=== PATIENT | male | born 1995 | race Caucasian/White ===

== ENCOUNTER 2022-08-02 14:52 | Inpatient (IN) | payer OTHER ==
[~2022-08-02] VITALS: Ht 162.6 cm; Wt 69.4 kg
[2022-08-02 16:17] LABS: BASOPHILS % (AUTO) 0.3 % (0.0-2.0); EOSINOPHILS % (AUTO) 2.1 % (1.0-6.0); HEMATOCRIT 46.6 % (41-53); HEMOGLOBIN 15.8 g/dL (13.5-17.5); LYMPHOCYTES # (AUTO) 0.8 K/uL (1.0-4.8); LYMPHOCYTES % (AUTO) 10.1 % (22.0-44.0); MEAN CORPUSCULAR VOLUME 85 fL (80-100); MONOCYTES # (AUTO) 0.5 K/uL (0.1-1.0); MONOCYTES % (AUTO) 7.1 % (2.0-9.0); NEUTROPHILS # (AUTO) 6.2 K/uL (1.8-7.7); NEUTROPHILS % (AUTO) 80.4 % (40.0-70.0); PLATELET COUNT (AUTO) 245 K/uL (150-450); RED BLOOD CELL COUNT(AUTO) 5.47 MIL/uL (4.50-5.90)
[2022-08-02 16:21] LABS: ANION GAP 6 mmol/L (8-16); CALCIUM, TOTAL 9.9 mg/dL (8.8-10.5); CARBON DIOXIDE 31 mmol/L (22-29); CHLORIDE 100 mmol/L (98-107); CREATININE 1.34 mg/dL (0.60-1.30); GLOMERULAR FILTR. RATE CALC > 60 mL/min (>60); GLUCOSE,RANDOM 90 mg/dL (70-110); POTASSIUM 4.5 mmol/L (3.5-5.1); SODIUM SERUM 137 mmol/L (136-145); UREA NITROGEN, BLOOD 18 mg/dL (7-18)
[2022-08-02 16:27] LABS: ALANINE AMINOTRANSFERASE 44 U/L (12-78); ALBUMIN 4.8 g/dL (3.4-5.0); ALKALINE PHOSPHATASE 64 U/L (46-116); ASPARTATE AMINOTRANSFERASE 25 U/L (15-37); BILIRUBIN,TOTAL 1.2 mg/dL (0.1-1.0); TOTAL PROTEIN, SERUM 8.6 g/dL (6.4-8.2)
[2022-08-02] MEDS ORDERED: HALOPERIDOL 5 MG TABLET PO PRN (16:45)
[2022-08-02 17:17] LABS: APPEARANCE,URINE CLEAR (CLEAR); BILIRUBIN,URINE NEGATIVE (NEGATIVE); GLUCOSE, URINE (UA) NEGATIVE (NEGATIVE); KETONES,URINE NEGATIVE (NEGATIVE); LEUKOCYTE ESTERASE ,URINE NEGATIVE (NEGATIVE); NITRATE,URINE NEGATIVE (NEGATIVE); OCCULT BLOOD,URINE NEGATIVE (NEGATIVE); PH,URINE 6.5 (5.0-8.0); PROTEIN,URINE 30-70 mg/dL (NEGATIVE); SPECIFIC GRAVITIY, URINE 1.031 (1.003-1.030)
[2022-08-02 17:29] LABS: BACTERIA,URINE None Seen /HPF (None Seen); RBC,URINE 0-2 /HPF (0-2); SQUAMOUS EPITHELIAL CELL,UR Few /LPF (None Seen); WBC,URINE 0-2 /HPF (0-5)
[2022-08-02 18:12] LABS: COVID AG,FIA SOURCE NASOPHARYNGEAL
[2022-08-02 22:12] VITALS: BP 125/67
[2022-08-02] MEDS: ZOLPIDEM TARTRATE 10 MG TABLET PO PRN (22:23)
[2022-08-02] MEDS ORDERED: INFLUENZA VIRUS VACCINE QVS 2022-23 (6MO+)/PF 60 MCG/0.5 ML SYRINGE IM. ONE (22:30)
[2022-08-03] MEDS ORDERED: ACETAMINOPHEN 325 MG TABLET PO PRN (07:15)
[2022-08-03] MEDS ORDERED: GuaiFENesin/D-METHORPHAN [SUGAR-FREE] 200-20MG/10 ML SYRUP UDCUP PO PRN (07:15)
[2022-08-03] MEDS ORDERED: LOPERAMIDE HCL 2 MG CAPSULE PO PRN (07:15)
[2022-08-03] MEDS ORDERED: MAGNESIUM HYDROXIDE SUSPENSION 30 ML UDCUP PO PRN (07:15)
[2022-08-03] MEDS ORDERED: ALBUTEROL SULFATE HFA 90 MCG/PUFF 8 GM INHALER IH PRN (07:15)
[2022-08-03] MEDS ORDERED: MAG HYDROX/AL HYDROX/SIMETH ES 30 ML SUSPENSION UDCUP PO PRN (07:15)
[2022-08-03] MEDS ORDERED: PETROLATUM,WHITE 28 GM JELLY TP PRN (07:15)
[2022-08-03] MEDS ORDERED: IBUPROFEN 400 MG TABLET PO PRN (07:15)
[2022-08-03] MEDS ORDERED: NICOTINE 14 MG/24 HOUR PATCH TD PRN (07:15)
[2022-08-03] MEDS ORDERED: ONDANSETRON HCL 4 MG TABLET PO PRN (07:15)
[2022-08-03] MEDS ORDERED: CloNIDine HCL 0.1 MG TABLET PO PRN (07:15)
[2022-08-03] MEDS ORDERED: DOCUSATE SODIUM 100 MG CAPSULE PO PRN (07:15)
[2022-08-03 08:21] VITALS: BP 112/73
[2022-08-03] MEDS: BuPROPion HCL XL 150 MG ER TABLET PO SCH (12:00)
[2022-08-03] MEDS: LORazepam 2 MG TABLET PO PRN (12:35)
[2022-08-03] MEDS: MIRTAZAPINE 15 MG TABLET PO SCH (21:34)
[2022-08-03] MEDS: ZOLPIDEM TARTRATE 10 MG TABLET PO PRN (21:34)
[2022-08-03] MEDS: TraZODone HCL 50 MG TABLET PO SCH (21:34)
[2022-08-03 22:03] VITALS: BP 122/74
[2022-08-04 08:01] VITALS: BP 107/57
[2022-08-04] MEDS: BuPROPion HCL XL 150 MG ER TABLET PO SCH (08:51)
[2022-08-04 15:20] VITALS: BP 123/75
[2022-08-04] MEDS: LORazepam 2 MG TABLET PO PRN (15:24)
[2022-08-04] MEDS: MIRTAZAPINE 15 MG TABLET PO SCH (20:10)
[2022-08-04] MEDS: TraZODone HCL 50 MG TABLET PO SCH (20:10)
[2022-08-04 20:11] VITALS: BP 120/70
[2022-08-05 08:08] VITALS: BP 113/61
[2022-08-05] MEDS: BuPROPion HCL XL 150 MG ER TABLET PO SCH (08:49)
[2022-08-05 20:05] VITALS: BP 115/78
[2022-08-05] MEDS: TraZODone HCL 50 MG TABLET PO SCH (20:09)
[2022-08-05] MEDS: MIRTAZAPINE 15 MG TABLET PO SCH (20:09)
[2022-08-06 08:33] VITALS: BP 99/53
[2022-08-06 09:06] VITALS: BP 130/76
[2022-08-06] MEDS: BuPROPion HCL XL 150 MG ER TABLET PO SCH (09:24)
[2022-08-06] MEDS ORDERED: BUPR-49 PO (12:23)
[2022-08-06] MEDS ORDERED: MIRT-89 PO (12:23)
[2022-08-06] MEDS ORDERED: TRAZ-252 PO (12:23)
== END 2022-08-06 14:00 | disposition home or self-care (01) | DRG 885 ==
LOC: EMS 14:55 → B2S 19:05
PROVIDERS: ADMIT Psychiatry & Neurology Child & Adolescent Psychiatry; ATTEND Psychiatry & Neurology Child & Adolescent Psychiatry
DX: F33.2 Major depressive disorder, recurrent severe without psychotic features (principal); N17.9 Acute kidney failure, unspecified; R17 Unspecified jaundice; R45.851 Suicidal ideations; F41.0 Panic disorder [episodic paroxysmal anxiety]; F41.9 Anxiety disorder, unspecified; Z20.822 Contact with and (suspected) exposure to COVID-19; I95.9 Hypotension, unspecified; Z79.899 Other long term (current) drug therapy
CPT/HCPCS: 80053; 81001; 85025; 99285; G0480